=== PATIENT | female | born 2000 ===

== ENCOUNTER 2024-10-05 14:12 | Outpatient (CLI) | payer OTHER | END 2024-10-05 14:14 | disposition home or self-care (01) | LOC: PRENATAL 14:12 | PROVIDERS: ATTEND Obstetrics & Gynecology Maternal & Fetal Medicine | DX: O44.00 Complete placenta previa NOS or without hemorrhage, unspecified trimester (principal); O36.1999 Maternal care for other isoimmunization, unspecified trimester, other fetus; Z3A.20 20 weeks gestation of pregnancy ==

== ENCOUNTER 2024-12-28 13:15 | Outpatient (CLI) | payer OTHER ==
[2025-01-21] MEDS ORDERED: PROCRIT20000 UNIT SUBCUTANEO (13:10)
== END 2024-12-28 13:20 | disposition home or self-care (01) ==
LOC: PRENATAL 13:15
PROVIDERS: ATTEND Obstetrics & Gynecology Maternal & Fetal Medicine
DX: O26.849 Uterine size-date discrepancy, unspecified trimester (principal); O36.8130 Decreased fetal movements, third trimester, not applicable or unspecified; O36.1999 Maternal care for other isoimmunization, unspecified trimester, other fetus; Z3A.32 32 weeks gestation of pregnancy

== ENCOUNTER → 2025-01-21 11:08 | Outpatient (CLI) | payer OTHER ==
[~2025-01-21 11:08] MED LIST: PROCRIT20000 UNIT SUBCUTANEO
== END | disposition home or self-care (01) ==
LOC: PRENATAL 11:08
PROVIDERS: ATTEND Obstetrics & Gynecology Maternal & Fetal Medicine
DX: Z76.1 Encounter for health supervision and care of foundling (principal)

== ENCOUNTER 2025-02-09 15:30 | Inpatient (IN) | payer OTHER ==
[~2025-02-09] VITALS: Ht 157.5 cm; Wt 78.5 kg
[2025-02-09 16:45] LABS: BASO % 0.2 % (0.1-1.2); EOS # 0.11 (0.04-0.54); EOS % 0.8 % (0.7-7.0); LYMPH # 1.51 (1.18-3.74); LYMPH % 10.4 % (19.3-53.1); MEAN PLATELET VOLUME 9.90 fl (9.4-12.4); MONO # 0.95 (0.24-0.82); MONO % 6.6 % (4.7-12.5); NEUT # 11.64 (1.56-6.13); NEUT % 80.5 % (34.0-71.1); RED CELL DISTRIBUTION WIDTH 15.5 % (11.6-14.4)
[2025-02-09 16:45] LABS: URINE APPEARANCE Clear; URINE BILIRRUBIN Negative (NEGATIVE); URINE BLOOD Negative; URINE COLOR Yellow; URINE GLUCOSE Negative (NEGATIVE); URINE KETONE Trace (NEGATIVE); URINE LEUKOCYTE Negative; URINE NITRATE Negative; URINE PROTEIN Trace (NEGATIVE); URINE UROBILINOGEN 1.0 E.U./dl
[2025-02-09 16:46] LABS: URINE BACTERIA 362.3 uL (0.0-1933); URINE EPITHELIAL CELLS 38.6 uL (0.0-38.8); URINE RBC 3.5 uL (0.0-20.8); URINE WBC 6.4 uL (0.0-23.2)
[2025-02-09 16:47] LABS: URINE CAST 0.00 uL (0.0-1.40)
[2025-02-09 17:19] LABS: INR < 0.93
[2025-02-09 17:37] LABS: ALT/SGPT 18.0 U/L (12-78); AST/SGOT 15.0 U/L (15-37); BILIRUBIN TOTAL 0.31 mg/dL (0.3-1.2); BUN CREA RATIO 17.0 (7.0-25.0); CREATININE SERUM 0.54 mg/dL (0.55-1.02); GFR 138.7; GLOBULINA 4.0 G/DL (2.4-3.5); GLUCOSE FASTING 73.0 mg/dL (65-100); OSMOLALITY SERUM 275.0 MOSM/KG (275-295)
[2025-02-22 08:51] VITALS: BP 118/70
[2025-02-22] MEDS ORDERED: RINGERS SOLUTION,LACTATED 1,000 ML IV SCH (09:00)
[2025-02-22] MEDS ORDERED: PRENATABS RX T1 EACH PO (09:01)
[2025-02-22 09:29] LABS: BASO % 0.2 % (0.1-1.2); EOS # 0.10 (0.04-0.54); EOS % 0.8 % (0.7-7.0); LYMPH # 2.01 (1.18-3.74); LYMPH % 16.0 % (19.3-53.1); MEAN PLATELET VOLUME 10.20 fl (9.4-12.4); MONO # 0.80 (0.24-0.82); MONO % 6.4 % (4.7-12.5); NEUT # 9.55 (1.56-6.13); NEUT % 75.9 % (34.0-71.1); RED CELL DISTRIBUTION WIDTH 15.2 % (11.6-14.4)
[2025-02-22] MEDS ORDERED: MISOPROSTOL 25 MCG/4 ML GEL.W.APPL VAG ONE ×4 (09:45→22:30)
[2025-02-22 10:10] LABS: INR < 0.93
[2025-02-22 11:17] VITALS: BP 114/65
[2025-02-22 16:05] VITALS: BP 109/72
[2025-02-22 23:47] VITALS: BP 119/65
[2025-02-23] VITALS (8 sets, daily range): BP systolic 98–120; BP diastolic 54–78
[2025-02-23] MEDS ORDERED: OXYTOCIN 20 UNITS/1000ML RL PIGGYBAG IV ONE ×2 (11:18→16:25)
[2025-02-23] MEDS ORDERED: MISOPROSTOL 25 MCG/4 ML GEL.W.APPL ONE (11:22)
[2025-02-23] MEDS ORDERED: OXYTOCIN 500 ML IV SCH (11:30)
[2025-02-23] MEDS ORDERED: PROMETHAZINE HCL 25 MG/ML AMPUL ONE (15:14)
[2025-02-23] MEDS ORDERED: ERYTHROMYCIN BASE OPHT 1GM EACH TUBE OP ONE (16:24)
[2025-02-23] MEDS ORDERED: LIDOCAINE HCL 1% 10ML VIAL ONE (16:25)
[2025-02-23] MEDS ORDERED: CHLORHEXIDINE GLUCONATE 120 ML BOTTLE TOP ONE (16:25)
[2025-02-23] MEDS ORDERED: PROMETHAZINE HCL 25 MG/ML AMPUL IV ONE (18:30)
[2025-02-23] MEDS ORDERED: OXYTOCIN 1,000 ML IV SCH (20:00)
[2025-02-23] MEDS ORDERED: ACETAMINOPHEN 500 MG GEL..CAP PO PRN (20:00)
[2025-02-23] MEDS ORDERED: BENZOCAINE/MENTHOL 90 ML BOTTLE TOP PRN (20:00)
[2025-02-23] MEDS ORDERED: CHLORHEXIDINE GLUCONATE 120 ML BOTTLE TOP SCH (20:00)
[2025-02-24] VITALS: BP 112/75
[2025-02-24 06:16] LABS: BASO % 0.2 % (0.1-1.2); EOS # 0.02 (0.04-0.54); EOS % 0.1 % (0.7-7.0); LYMPH # 1.86 (1.18-3.74); LYMPH % 10.6 % (19.3-53.1); MEAN PLATELET VOLUME 10.30 fl (9.4-12.4); MONO # 1.29 (0.24-0.82); MONO % 7.4 % (4.7-12.5); NEUT # 14.18 (1.56-6.13); NEUT % 81.1 % (34.0-71.1); RED CELL DISTRIBUTION WIDTH 15.4 % (11.6-14.4)
[2025-02-24 08:04] VITALS: BP 99/65
[2025-02-24] MEDS ORDERED: PNV,CALCIUM 72/IRON/FOLIC ACID 1 TAB TABLET PO SCH (09:00)
[2025-02-24 17:37] VITALS: BP 114/78
[2025-02-25 00:18] VITALS: BP 111/73
[2025-02-25 08:00] VITALS: BP 117/75
[2025-02-25 16:10] VITALS: BP 110/73
[2025-02-25] MEDS ORDERED: FF) RHO(D) IMMUNE GLOBULIN (POM) IM NR (17:30)
== END 2025-02-25 18:30 | disposition home or self-care (01) | DRG 807 ==
LOC: OB/GYN 02-20 15:30 → LDR 02-22 08:01 → OB/GYN 02-23 19:33
PROVIDERS: ADMIT Obstetrics & Gynecology; ATTEND Obstetrics & Gynecology
PROC: 3E0P7VZ Introduction of Hormone into Female Reproductive, Via Natural or Artificial Opening (ICD-10-PCS; 2025-02-22)
PROC: 4A1HXCZ Monitoring of Products of Conception, Cardiac Rate, External Approach (ICD-10-PCS; 2025-02-22)
PROC: 10E0XZZ Delivery of Products of Conception, External Approach (ICD-10-PCS; principal; 2025-02-23)
PROC: 0W8NXZZ Division of Female Perineum, External Approach (ICD-10-PCS; 2025-02-23)
PROC: 3E033VJ Introduction of Other Hormone into Peripheral Vein, Percutaneous Approach (ICD-10-PCS; 2025-02-23)
DX: O80 Encounter for full-term uncomplicated delivery (principal); Z37.0 Single live birth; Z3A.40 40 weeks gestation of pregnancy